=== PATIENT | female | born 1980 | race Caucasian/White ===

== ENCOUNTER 2016-07-17 17:13 | Emergency (ER) | payer OTHER ==
--- NOTE | 2016-07-17 19:46 | EDDOCDS ---
Physician Documentation [facility] Name: Meredith Warner Age: 35 yrs Sex: Female : 1980 Arrival Date: 07/17/2016 Time: 17:13 Bed TR7 Private MD: [facility] - Adults Disposition: 07/17/16 19:36 Discharged to Home/Self Care. Impression: Dental caries. - Condition is Stable. - Discharge Instructions: Dental Pain. - Prescriptions for Amoxicillin 500 mg Oral Capsule - take 1 capsule by ORAL route every 8 hours for 10 days; 30 tablet. Naprosyn 500 mg Oral Tablet - take 1 tablet by ORAL route 2 times per day take with food; 30 tablet. - Medication Reconciliation, Local Pharmacy Hours form. - Follow up: Your, Dentist; When: 2 - 3 days; Reason: Recheck today's complaints, Continuance of care. - Problem is new. - Symptoms have improved. - Notes: USE SALT WATER RINSES, TAKE MEDICATIONS INSTRUCTED, FOLLOW UP WITH YOUR DENTIST Historical: - Allergies: no known allergies; - Home Meds: 1. none - PMHx: Diabetes - NIDDM: uncontrolled; - PSHx: Cholecystectomy; Tubal ligation; Tonsillectomy; - Social history: Smoking status: Patient uses tobacco products, heavy tobacco smoker. No barriers to communication noted, The patient speaks fluent Nicaraguan, Speaks appropriately for age. - Family history: Not pertinent. - : The pt / caregiver states he / she is not on anticoagulants. Home medication list is obtained from the patient. - Exposure Risk Screening:: None identified. 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 5 in. (165.10 cm); Pain 8/10; 19:37 BP 156 / 79; Pulse 76; Resp 18; Pulse Ox 97% on R/A; Pain 8/10; ttb 17:14 Body Mass Index 35.78 (97.52 kg, 165.10 cm) elp Signatures: Malik Byrne RN RN mlb1 Anthony Kraft RPA-C RPA-Cck7 Luigi, Jennifer, RN RN ttb MTDD
--- NOTE | 2016-07-17 19:46 | EDDOCDS ---
Nurse's Notes [facility] Name: Meredith Warner Age: 35 yrs Sex: Female : 1980 Arrival Date: 07/17/2016 Time: 17:13 Bed TR7 Private MD: [facility] - Adults Diagnosis: Dental caries Presentation: 07/17 17:27 Presenting complaint: Patient states: Right lower jaw tooth pain began three days ago. mlb1 Adult Sepsis Screening: The patient does not have new or worsening altered mentation. Patient's respiratory rate is less than 22. Systolic blood pressure is greater than 100. Patient has a qSOFA score of 0- Negative Sepsis Screen. Suicide/Homicide risk assessment- the patient denies having any suicidal and/or homicidal ideations and does not present with any other emotional, behavioral or mental health complaints. 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 Transition of care: patient was not received from another setting of care. 17:27 Acuity: NADIA Level 4 mlb1 17:27 Method Of Arrival: Walkin/Carried/Asstd mlb1 Triage Assessment: 17:29 General: Appears in no apparent distress, Behavior is appropriate for age, cooperative. mlb1 Pain: Location: right jaw Pain currently is 8 out of 10 on a pain scale. HIV screening NA for this visit Offered previously. 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 none - PMHx: Diabetes - NIDDM: uncontrolled; - PSHx: Cholecystectomy; Tubal ligation; Tonsillectomy; - Social history: Smoking status: Patient uses tobacco products, heavy tobacco smoker. No barriers to communication noted, The patient speaks fluent Irish, Speaks appropriately for age. - Family history: Not pertinent. - : The pt / caregiver states he / she is not on anticoagulants. Home medication list is obtained from the patient. - Exposure Risk Screening:: None identified. Screenin:44 Screening information is obtained from the patient. Fall risk: No risks identified. ttb Assistance ADL's: requires no assistance with activities of daily living. Abuse/DV Screen: The patient / caregiver reports he/she is: not in a situation that causes fear, pain or injury. Nutritional screening: No deficits noted. Advance Directives: Currently, there is no health care proxy. home support is adequate. Assessment: 18:52 General: Appears in no apparent distress, well nourished, well groomed, Behavior is ttb appropriate for age, cooperative, pleasant. Neurological: Level of Consciousness is awake, alert. 18:53 Respiratory: Airway is patent Respiratory effort is even, unlabored. ttb 19:44 EENT: Poor dentition noted. Reports pain since tooth pain. Respiratory: No deficits ttb noted. Airway is patent Respiratory effort is even, unlabored. Derm: Skin is normal, no facial swelling noted. Vital Signs: 17:14 BP 121 / 76; Pulse 74; Resp 16; Temp 96.0; Pulse Ox 100% ; Weight 97.52 kg; Height 5 elp ft. 5 in. (165.10 cm); Pain 8/10; 19:37 BP 156 / 79; Pulse 76; Resp 18; Pulse Ox 97% on R/A; Pain 8/10; ttb 17:14 Body Mass Index 35.78 (97.52 kg, 165.10 cm) [facility] Vitals: 17:14 Log In Time: July 17, 2016 at 17:12. [facility] ED Course: 17:14 Patient visited by Yaneth Marina PCA. elp 17:14 [facility] - Adults is Private Physician. elp 17:14 Patient moved to Waiting elp 17:15 Patient visited by Yaneth Marina PCA. elp 17:15 Patient moved to Pre RCE elp 17:27 Patient visited by Malik Byrne, GIOVANA. mlb1 17:28 Triage Initiated mlb1 17:29 Patient visited by Malik Byrne, GIOVANA. mlb1 18:52 Patient visited by Jennifer Meyers RN. ttb 18:52 Patient moved to Triage 2 ttb 19:26 [facility] ck[facility] 19:26 Rafat Thompson MD is Attending Physician. ck7 19:26 Patient visited by Anthony Kraft RPA-C. ck7 19:36 Your, Dentist is Referral Physician. ck7 19:44 The patient / caregiver is instructed regarding the plan of care and ED course. Patient ttb has correct armband on for positive identification. 19:44 No IV's were initiated during this patient's visit. No procedures done that require ttb assistance. 19:45 Patient moved to TR7 mdr Order Results: There are currently no results for this order. Outcome: 19:36 Discharge ordered by Provider. ck7 19:44 Discharge Assessment: Patient awake, alert and oriented x 3. No cognitive and/or ttb functional deficits noted. Patient verbalized understanding of disposition instructions. Patient awake and alert. patient administered narcotics - no. The following High Risk Discharge criteria are identified: None. Discharged to home ambulatory. Condition: good Condition: stable Condition: improved. Discharge instructions given to patient, Instructed on discharge instructions, follow up and referral plans. medication usage, salt water gargles Demonstrated understanding of instructions, medications, Pt was receptive of discharge instructions/ teaching. Prescriptions given X 2. No special radiology studies were completed. Property :Personal belongings accompany Pt. 19:46 Patient left the ED. ttb Signatures: Malik Byrne RN RN mlb1 Anthony Kraft, RPA-C RPA-Cck7 Jennifer Meyesr RN RN ttb Yaneth Marina, HORSERADISH MAKER HORSERADISH MAKER elp Yosef Adam, HORSERADISH MAKER HORSERADISH MAKER mdr MTDD
--- NOTE | 2016-07-19 20:47 | EDDOCDS ---
Physician Documentation [facility] Name: Meredith Warner Age: 35 yrs Sex: Female : 1980 Arrival Date: 07/17/2016 Time: 17:13 Bed TR7 Private MD: [facility] - Adults Disposition: 07/17/16 19:36 Discharged to Home/Self Care. Impression: Dental caries. - Condition is Stable. - Discharge Instructions: Dental Pain. - Prescriptions for Amoxicillin 500 mg Oral Capsule - take 1 capsule by ORAL route every 8 hours for 10 days; 30 tablet. Naprosyn 500 mg Oral Tablet - take 1 tablet by ORAL route 2 times per day take with food; 30 tablet. - Medication Reconciliation, Local Pharmacy Hours form. - Follow up: Your, Dentist; When: 2 - 3 days; Reason: Recheck today's complaints, Continuance of care. - Problem is new. - Symptoms have improved. - Notes: USE SALT WATER RINSES, TAKE MEDICATIONS INSTRUCTED, FOLLOW UP WITH YOUR DENTIST Historical: - Allergies: no known allergies; - Home Meds: 1. none - PMHx: Diabetes - NIDDM: uncontrolled; - PSHx: Cholecystectomy; Tubal ligation; Tonsillectomy; - Social history: Smoking status: Patient uses tobacco products, heavy tobacco smoker. No barriers to communication noted, The patient speaks fluent Malaysian, Speaks appropriately for age. - Family history: Not pertinent. - : The pt / caregiver states he / she is not on anticoagulants. Home medication list is obtained from the patient. - Exposure Risk Screening:: None identified. 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 5 in. (165.10 cm); Pain 8/10; 19:37 BP 156 / 79; Pulse 76; Resp 18; Pulse Ox 97% on R/A; Pain 8/10; ttb 17:14 Body Mass Index 35.78 (97.52 kg, 165.10 cm) elp MDM: 19:48 [facility] Payment Agreement was scanned into [employer] and attached to record. b 19:48 Financial registration complete. gjb 07/18 11:19 T-Sheet-- Draft Copy was scanned into [employer] and attached to record. gb Signatures: Jossie Tapia, Reg Reg gb Malik Byrne RN RN mlb1 Anthony Kraft, RPA-C RPA-Cck7 Jennifer Meyers RN RN ttMarbella Hood The chart was reviewed and I authenticate all verbal orders and agree with the evaluation and treatment provided.Attachments: 07/17 19:48 [facility] Payment Agreement gjb 07/18 11:19 T-Sheet-- Draft Copy gb Chart Complete MTDD
--- NOTE | 2016-07-19 20:47 | EDDOCDS ---
Physician Documentation [facility] Name: Meredith Warner Age: 35 yrs Sex: Female : 1980 Arrival Date: 07/17/2016 Time: 17:13 Bed TR7 Private MD: [facility] - Adults Disposition: 07/17/16 19:36 Discharged to Home/Self Care. Impression: Dental caries. - Condition is Stable. - Discharge Instructions: Dental Pain. - Prescriptions for Amoxicillin 500 mg Oral Capsule - take 1 capsule by ORAL route every 8 hours for 10 days; 30 tablet. Naprosyn 500 mg Oral Tablet - take 1 tablet by ORAL route 2 times per day take with food; 30 tablet. - Medication Reconciliation, Local Pharmacy Hours form. - Follow up: Your, Dentist; When: 2 - 3 days; Reason: Recheck today's complaints, Continuance of care. - Problem is new. - Symptoms have improved. - Notes: USE SALT WATER RINSES, TAKE MEDICATIONS INSTRUCTED, FOLLOW UP WITH YOUR DENTIST Historical: - Allergies: no known allergies; - Home Meds: 1. none - PMHx: Diabetes - NIDDM: uncontrolled; - PSHx: Cholecystectomy; Tubal ligation; Tonsillectomy; - Social history: Smoking status: Patient uses tobacco products, heavy tobacco smoker. No barriers to communication noted, The patient speaks fluent Nicaraguan, Speaks appropriately for age. - Family history: Not pertinent. - : The pt / caregiver states he / she is not on anticoagulants. Home medication list is obtained from the patient. - Exposure Risk Screening:: None identified. 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 5 in. (165.10 cm); Pain 8/10; 19:37 BP 156 / 79; Pulse 76; Resp 18; Pulse Ox 97% on R/A; Pain 8/10; ttb 17:14 Body Mass Index 35.78 (97.52 kg, 165.10 cm) elp MDM: 19:48 [facility] Payment Agreement was scanned into [employer] and attached to record. b 19:48 Financial registration complete. gjb 07/18 11:19 T-Sheet-- Draft Copy was scanned into [employer] and attached to record. gb Signatures: Jossie Tapia, Reg Reg gb Malik Byrne RN RN mlb1 Anthony Kraft, RPA-C RPA-Cck7 Jennifer Meyers RN RN ttMarbella Hood The chart was reviewed and I authenticate all verbal orders and agree with the evaluation and treatment provided.Attachments: 07/17 19:48 [facility] [place] Agreement gjb 07/18 11:19 T-Sheet-- Draft Copy gb Chart Complete MTDD
--- NOTE | 2016-07-19 20:47 | EDDOCDS ---
Nurse's Notes [facility] Name: Meredith Warner Age: 35 yrs Sex: Female : 1980 Arrival Date: 07/17/2016 Time: 17:13 Bed TR7 Private MD: [facility] - Adults Diagnosis: Dental caries Presentation: 07/17 17:27 Presenting complaint: Patient states: Right lower jaw tooth pain began three days ago. mlb1 Adult Sepsis Screening: The patient does not have new or worsening altered mentation. Patient's respiratory rate is less than 22. Systolic blood pressure is greater than 100. Patient has a qSOFA score of 0- Negative Sepsis Screen. Suicide/Homicide risk assessment- the patient denies having any suicidal and/or homicidal ideations and does not present with any other emotional, behavioral or mental health complaints. Status: Patient is not a service specialist or dependent. Transition of care: patient was not received from another setting of care. 17:27 Acuity: NADIA Level 4 mlb1 17:27 Method Of Arrival: Walkin/Carried/Asstd mlb1 Triage Assessment: 17:29 General: Appears in no apparent distress, Behavior is appropriate for age, cooperative. mlb1 Pain: Location: right jaw Pain currently is 8 out of 10 on a pain scale. HIV screening NA for this visit Offered previously. 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 none - PMHx: Diabetes - NIDDM: uncontrolled; - PSHx: Cholecystectomy; Tubal ligation; Tonsillectomy; - Social history: Smoking status: Patient uses tobacco products, heavy tobacco smoker. No barriers to communication noted, The patient speaks fluent Chadian, Speaks appropriately for age. - Family history: Not pertinent. - : The pt / caregiver states he / she is not on anticoagulants. Home medication list is obtained from the patient. - Exposure Risk Screening:: None identified. Screenin:44 Screening information is obtained from the patient. Fall risk: No risks identified. ttb Assistance ADL's: requires no assistance with activities of daily living. Abuse/DV Screen: The patient / caregiver reports he/she is: not in a situation that causes fear, pain or injury. Nutritional screening: No deficits noted. Advance Directives: Currently, there is no health care proxy. home support is adequate. Assessment: 18:52 General: Appears in no apparent distress, well nourished, well groomed, Behavior is ttb appropriate for age, cooperative, pleasant. Neurological: Level of Consciousness is awake, alert. 18:53 Respiratory: Airway is patent Respiratory effort is even, unlabored. ttb 19:44 EENT: Poor dentition noted. Reports pain since tooth pain. Respiratory: No deficits ttb noted. Airway is patent Respiratory effort is even, unlabored. Derm: Skin is normal, no facial swelling noted. Vital Signs: 17:14 BP 121 / 76; Pulse 74; Resp 16; Temp 96.0; Pulse Ox 100% ; Weight 97.52 kg; Height 5 elp ft. 5 in. (165.10 cm); Pain 8/10; 19:37 BP 156 / 79; Pulse 76; Resp 18; Pulse Ox 97% on R/A; Pain 8/10; ttb 17:14 Body Mass Index 35.78 (97.52 kg, 165.10 cm) [facility] Vitals: 17:14 Log In Time: July 17, 2016 at 17:12. [facility] ED Course: 17:14 Patient visited by Yaneth Marina PCA. elp 17:14 [facility] - Adults is Private Physician. elp 17:14 Patient moved to Waiting elp 17:15 Patient visited by Yaneth Marina PCA. elp 17:15 Patient moved to Pre RCE elp 17:27 Patient visited by Malik Byrne, GIOVANA. mlb1 17:28 Triage Initiated mlb1 17:29 Patient visited by Malik Byrne, GIOVANA. mlb1 18:52 Patient visited by Jennifer Meyers RN. ttb 18:52 Patient moved to Triage 2 ttb 19:26 Anthony Kraft RPA-C [facility] ck7 19:26 Rafat Thompson MD is Attending Physician. ck7 19:26 Patient visited by Anthony Kraft RPA-C. ck7 19:36 Your, Dentist is Referral Physician. ck7 19:44 The patient / caregiver is instructed regarding the plan of care and ED course. Patient ttb has correct armband on for positive identification. 19:44 No IV's were initiated during this patient's visit. No procedures done that require ttb assistance. 19:45 Patient moved to TR7 [facility] 19:48 [facility] Payment Agreement was scanned into [employer] and attached to record. gjb 20:22 Patient name changed from Meredith\S\Lori\S\Timmy\S\ to Meredith\S\V\S\Timmy. EDMS 07/18 11:19 T-Sheet-- Draft Copy was scanned into [employer] and attached to record. gb Order Results: There are currently no results for this order. Outcome: 07/17 19:36 Discharge ordered by Provider. ck7 19:44 Discharge Assessment: Patient awake, alert and oriented x 3. No cognitive and/or ttb functional deficits noted. Patient verbalized understanding of disposition instructions. Patient awake and alert. patient administered narcotics - no. The following High Risk Discharge criteria are identified: None. Discharged to home ambulatory. Condition: good Condition: stable Condition: improved. Discharge instructions given to patient, Instructed on discharge instructions, follow up and referral plans. medication usage, salt water gargles Demonstrated understanding of instructions, medications, Pt was receptive of discharge instructions/ teaching. Prescriptions given X 2. No special radiology studies were completed. Property :Personal belongings accompany Pt. 19:46 Patient left the ED. ttb Signatures: Dispatcher MedHo EDNM Jossie Tapia, aMlik Huggins, RN RN mlb1 Anthony Kraft, RPA-C RPA-Cck7 Jennifer Meyers RN RN ttb Yaneth Marina, CHANNEL PARTNERS CHANNEL PARTNERS Yosef Anton, CHANNEL PARTNERS CHANNEL PARTNERS Marbella Thayer Chart Complete MTDD
== END 2016-07-17 19:46 | disposition home or self-care (01) ==
LOC: M ED 17:13
DX: K02.9 Dental caries, unspecified (principal); E11.65 Type 2 diabetes mellitus with hyperglycemia; F17.210 Nicotine dependence, cigarettes, uncomplicated

== ENCOUNTER 2016-08-28 21:40 | Emergency (ER) | payer OTHER ==
[~2016-08-28] VITALS: Ht 165.1 cm; Wt 98.0 kg
[2016-08-28] MEDS ORDERED: MELA5TAB14 PO (21:59)
[2016-08-29 01:17] VITALS: BP 108/67
[2016-08-29] MEDS ORDERED: NORCO 5/325MG TABLET (BULK FOR ED) PO ONE (01:30)
[2016-08-29] MEDS ORDERED: NAPR500T PO (01:30)
--- NOTE | 2016-08-29 03:52 | REP ---
Clinical: Pain. Technique: AP, lateral, bilateral oblique views of the left ankle. Comparison: 07/24/2005. Findings: Diffuse soft tissue swelling is appreciated. Oblique image (3 of 4) suggest the possibility of a small nondisplaced fracture along the anterior process of the calcaneus. No other fracture or dislocation is identified. Joint spaces and ankle mortise appear intact. Impression: Diffuse soft tissue swelling. Oblique view suggests a nondisplaced fracture along the anterior process of the calcaneus. Signed by Mailk Baer MD 08/29/2016 03:44 A
== END 2016-08-29 | disposition home or self-care (01) ==
LOC: M ED 08-29 02:19
DX: S93.412A Sprain of calcaneofibular ligament of left ankle, initial encounter (principal); X50.9XXA Other and unspecified overexertion or strenuous movements or postures, initial encounter; Y92.019 Unspecified place in single-family (private) house as the place of occurrence of the external cause; Y93.01 Activity, walking, marching and hiking; Y99.8 Other external cause status; Z91.040 Latex allergy status; F17.210 Nicotine dependence, cigarettes, uncomplicated

== ENCOUNTER → 2017-11-07 | Outpatient (REF) | payer OTHER ==
[2017-11-12 14:15] LABS: HPV HYBRID CAPTURE II Negative (Negative)
== END ==
LOC: M SFHCWAGY 11:58
DX: Z12.4 Encounter for screening for malignant neoplasm of cervix (principal)
CPT/HCPCS: 88142

== ENCOUNTER → 2018-08-06 | Outpatient (CLI) | payer OTHER ==
[~2018-08-06] MED LIST: MELA5TAB17 PO; NAPR-50 PO
--- NOTE | 2018-08-06 16:22 | REP ---
KUB, ONE VIEW: HISTORY: Tenderness. A small amount of air is present in the intestine. There are no air fluid levels or dilated loops of intestine. There is no pneumoperitoneum. Surgical clips are present in the right upper quadrant. IMPRESSION: Non-specific bowel gas pattern Electronically Signed by Kris Pritchard MD 08/06/2018 04:23 P
[2018-08-06 17:24] LABS: BASO # 0.1 10^3/uL (0.0-0.2); BASO % 0.5 % (0.0-1.0); EOS # 0.1 10^3/uL (0.0-0.50); EOS % 0.8 % (0.0-3.0); HEMATOCRIT 41.5 % (36.0-47.0); HEMOGLOBIN 13.3 g/dl (12.0-15.5); LYMPH % 31.5 % (24.0-44.0); MEAN CORPUSCULAR HEMOGLOBIN 30.1 pg (27.0-33.0); MEAN CORPUSCULAR VOLUME 93.9 fl (80.0-96.0); MONO # 0.5 10^3/uL (0.0-0.8); MONO % 4.8 % (0.0-5.0); PLATELET COUNT, AUTOMATED 260 10^3/uL (150-450); RED BLOOD COUNT 4.42 10^6/uL (4.00-5.40); WHITE BLOOD COUNT 9.7 10^3/uL (4.0-10.0)
[2018-08-06 17:25] LABS: ALBUMIN 3.7 GM/DL (3.2-5.2); ALT/SGPT 20 U/L (12-78); AMYLASE 26 U/L (25-115); BILIRUBIN,TOTAL 0.3 MG/DL (0.2-1.0); BLOOD UREA NITROGEN 14 MG/DL (7-18); CALCIUM LEVEL 8.7 MG/DL (8.5-10.1); CARBON DIOXIDE LEVEL 24 MEQ/L (21-32); CHLORIDE LEVEL 105 MEQ/L (98-107); GLOMERULAR FILTRATION RATE > 60.0 (>60); GLUCOSE, FASTING 179 MG/DL (70-100); LIPASE 92 U/L (73-393); SODIUM LEVEL 140 MEQ/L (136-145); TOTAL PROTEIN 7.2 GM/DL (6.4-8.2)
== END ==
LOC: M WUC 13:32
PROVIDERS: ATTEND Physician Assistant
DX: R10.812 Left upper quadrant abdominal tenderness (principal)

== ENCOUNTER 2019-01-06 11:41 | Emergency (ER) | payer OTHER ==
[~2019-01-06] VITALS: Ht 160 cm; Wt 92.7 kg
[~2019-01-06 11:41] MED LIST changes: -MELA5TAB17 PO; +MELA5TAB31 PO; -NAPR-50 PO; +NAPR-837 PO
[2019-01-06] MEDS ORDERED: IBUP80TA PO (14:45)
[2019-01-06] MEDS ORDERED: AUGM875T28 PO (14:45)
[2019-01-06 14:53] LABS: BASO # 0.1 10^3/uL (0.0-0.2); BASO % 0.5 % (0.0-1.0); EOS # 0.1 10^3/uL (0.0-0.50); EOS % 0.8 % (0.0-3.0); HEMATOCRIT 42.3 % (36.0-47.0); HEMOGLOBIN 13.8 g/dl (12.0-15.5); LYMPH # 3.1 10^3/uL (1.5-4.5); LYMPH % 26.7 % (24.0-44.0); MEAN CORPUSCULAR HEMOGLOBIN 30.1 pg (27.0-33.0); MEAN CORPUSCULAR HGB CONC 32.6 g/dl (32.0-36.5); MEAN CORPUSCULAR VOLUME 92.4 fl (80.0-96.0); MONO # 0.7 10^3/uL (0.0-0.8); MONO % 6.2 % (0.0-5.0); NEUTROPHILS # 7.7 10^3/uL (1.8-7.7); NEUTROPHILS % 65.5 % (36.0-66.0); PLATELET COUNT, AUTOMATED 246 10^3/uL (150-450); RED BLOOD COUNT 4.58 10^6/uL (4.00-5.40); WHITE BLOOD COUNT 11.8 10^3/uL (4.0-10.0)
[2019-01-06 15:19] VITALS: BP 127/71
== END 2019-01-06 15:20 | disposition home or self-care (01) ==
LOC: M ED 11:41
DX: K04.7 Periapical abscess without sinus (principal); K02.9 Dental caries, unspecified; K05.10 Chronic gingivitis, plaque induced; R68.84 Jaw pain; K08.89 Other specified disorders of teeth and supporting structures; G47.00 Insomnia, unspecified; F32.9 Major depressive disorder, single episode, unspecified; Z72.0 Tobacco use; Z91.040 Latex allergy status

== ENCOUNTER → 2019-10-05 | Outpatient (REF) | payer OTHER ==
[~2019-10-05] MED LIST changes: +AUGM875T28 PO; +IBUP80TA PO
[2019-10-05 13:17] LABS: BASO # 0.1 10^3/uL (0.0-0.2); BASO % 0.5 % (0.0-1.0); EOS # 0.2 10^3/uL (0.0-0.5); EOS % 1.7 % (0.0-3.0); HEMATOCRIT 43.9 % (36.0-47.0); HEMOGLOBIN 13.8 g/dl (12.0-15.5); LYMPH # 3.9 10^3/uL (1.5-5.0); LYMPH % 34.6 % (24.0-44.0); MEAN CORPUSCULAR HEMOGLOBIN 29.6 pg (27.0-33.0); MEAN CORPUSCULAR HGB CONC 31.4 g/dl (32.0-36.5); MEAN CORPUSCULAR VOLUME 94.2 fl (80.0-96.0); MONO # 0.6 10^3/uL (0.0-0.8); MONO % 5.4 % (0.0-5.0); NEUTROPHILS # 6.5 10^3/uL (1.5-8.5); NEUTROPHILS % 57.4 % (36.0-66.0); PLATELET COUNT, AUTOMATED 267 10^3/uL (150-450); RED BLOOD COUNT 4.66 10^6/uL (4.00-5.40); WHITE BLOOD COUNT 11.3 10^3/uL (4.0-10.0)
[2019-10-05 13:25] LABS: ALBUMIN 3.3 GM/DL (3.2-5.2); ALT/SGPT 14 U/L (12-78); BILIRUBIN,TOTAL 0.4 MG/DL (0.2-1.0); BLOOD UREA NITROGEN 10 MG/DL (7-18); CARBON DIOXIDE LEVEL 29 MEQ/L (21-32); CHLORIDE LEVEL 105 MEQ/L (98-107); CHOLESTEROL LEVEL 186 MG/DL (<200); CHOLESTEROL RISK RATIO 4.769 (<5); CREATININE FOR GFR 0.62 MG/DL (0.55-1.30); GLOMERULAR FILTRATION RATE > 60.0 (>60); GLUCOSE, FASTING 184 MG/DL (70-100); HDL CHOLESTEROL 39 MG/DL (>40); LDL CHOLESTEROL 124 MG/DL (<100); NON-HDL-C 147 MG/DL; POTASSIUM SERUM 4.5 MEQ/L (3.5-5.1); SODIUM LEVEL 139 MEQ/L (136-145); TOTAL PROTEIN 7.1 GM/DL (6.4-8.2); TRIGLYCERIDES LEVEL 115 MG/DL (<150)
[2019-10-05 13:31] LABS: TOTAL 25(OH) VITAMIN D 26.2 NG/ML (30.0-100.0)
[2019-10-05 13:46] LABS: HEMOGLOBIN A1c 8.2 %
== END ==
LOC: M LAB REF 12:08
PROVIDERS: ATTEND Family Medicine
DX: E11.9 Type 2 diabetes mellitus without complications (principal)

== ENCOUNTER → 2020-08-11 | Outpatient (CLI) | payer OTHER ==
[~2020-08-11] MED LIST changes: -MELA5TAB31 PO; +MELA5TAB36 PO
== END ==
LOC: M LABSMTC 12:08
PROVIDERS: ATTEND Family Medicine
DX: Z20.822 Contact with and (suspected) exposure to COVID-19 (principal)

== ENCOUNTER → 2020-08-23 | Outpatient (CLI) | payer OTHER ==
[2020-08-23 20:11] LABS: C REACTIVE PROTEIN QUANTITATIV 0.97 MG/DL (0.00-0.30); RHEUMATOID FACTOR QUANT < 10.0 IU/ML (<15.0)
[2020-08-25 13:06] LABS: ANTINUCLEAR ANTIBODIES DIRECT Negative (Negative)
== END ==
LOC: M WUC 15:13
PROVIDERS: ATTEND Orthopaedic Surgery
DX: G56.01 Carpal tunnel syndrome, right upper limb (principal); R20.2 Paresthesia of skin; M54.2 Cervicalgia

== ENCOUNTER → 2021-02-28 | Outpatient (REF) | LOC: M LAB 12:08 | PROVIDERS: ATTEND Nurse Practitioner Adult Health | DX: Z00.00 Encounter for general adult medical examination without abnormal findings (principal) ==

== ENCOUNTER → 2021-03-15 | Outpatient (CLI) | payer OTHER ==
--- NOTE | 2021-03-15 11:30 | REPMRS ---
Patient History The patient states she had a clinical breast exam in February 2021. Family history of breast cancer in mother. Patient states no breast complaints today. Patient has signed MRS History Sheet. Digital Woman Screen Mammo: March 15, 2021 - Exam #: [id number] Bilateral CC and MLO view(s) were taken. Technologist: Alexandra Blevins Technologist FINDINGS: The breast tissue is almost entirely fat. Screening. Digital screening (2D) mammography was performed bilaterally. Additionally, breast tomosynthesis (3D) mammography was perfomed bilaterally in the CC and MLO projections. Today's examination is the initial screening examination. By history, the patient has no complaints of a palpable breast abnormality or other significant breast complaints. The Volpara volumetric breast density category is A, the breasts are almost entirely fatty. The breasts are symmetric in size and shape. There are no masses. There is no internal architectural distortion. There are no suspicious microcalcific clusters. Skin thickening or nipple retraction is not present. IMPRESSION: BI-RADS Category 2- Benign Findings. There is no evidence of malignant alteration of the breasts. Followup examination recommended in one year. This mammogram was read with the assistance of [employer],an FDA approved computer aided detection system for mammography. The lifetime Tyrer-Cuzick score is 19.8% Negative x-ray reports should not delay surgical consultation if a dominant or clinically suspicious mass is present. Not all breast cancers can be identified by mammography. Therefore, we recommend that you continue to perform regular breast self-examination and physical examination and then promptly contact your physician of any concerns or changes. Adenosis and dense breasts may obscure an underlying neoplasm. Assessment: BI-RADS/ACR category 2 mammogram. Benign Findings. Recommendation Routine screening mammogram of both breasts at age 40. Electronically Signed By: Tushar Moore MD 03/15/21 [id number]
== END ==
LOC: M WHC 09:36
PROVIDERS: ATTEND Nurse Practitioner Women's Health
DX: Z12.31 Encounter for screening mammogram for malignant neoplasm of breast (principal); Z80.3 Family history of malignant neoplasm of breast

== ENCOUNTER → 2021-03-15 | Outpatient (REF) | payer OTHER | LOC: M SFHCWAGY 13:34 | PROVIDERS: ATTEND Nurse Practitioner Women's Health | DX: Z12.4 Encounter for screening for malignant neoplasm of cervix (principal) ==

== ENCOUNTER → 2021-04-02 | Outpatient (REF) | LOC: M EMP 09:24 | PROVIDERS: ATTEND Family Medicine | DX: Z11.52 Encounter for screening for COVID-19 (principal) ==

== ENCOUNTER → 2021-04-14 | Outpatient (REF) | LOC: M LABSMTC 11:38 | PROVIDERS: ATTEND Pediatrics | DX: Z20.822 Contact with and (suspected) exposure to COVID-19 (principal) ==

== ENCOUNTER → 2021-04-27 | Outpatient (REF) | LOC: M EMP 14:05 | PROVIDERS: ATTEND Family Medicine | DX: Z11.52 Encounter for screening for COVID-19 (principal); Z20.822 Contact with and (suspected) exposure to COVID-19 ==

== ENCOUNTER → 2025-01-18 | Outpatient (CLI) | payer OTHER | LOC: M RAD 09:48 | PROVIDERS: ATTEND Nurse Practitioner Family | DX: M25.511 Pain in right shoulder (principal) ==